=== PATIENT | female | born 1985 | race Caucasian/White ===

== ENCOUNTER 2017-09-20 11:56 | Outpatient (CLI) | payer BC ==
[~2017-09-20 11:56] MED LIST: PREN-132 PO; PROP10TA10 PO; [UNRECOGNIZED DRUG - CODE] PO
[2017-09-20] MEDS ORDERED: LORA0.5T PO (13:16)
[2017-09-20] MEDS ORDERED: PRO100T PO (13:16)
[2017-09-20] MEDS ORDERED: TRINTELLIX PO (13:16)
[2017-09-20] MEDS ORDERED: ONDA8TAB6 PO (13:16)
[2017-09-20 13:25] LABS: BASOPHILS % (AUTO) 0.3 % (0-1); EOSINOPHILS # (AUTO) 0.1 X10'3 (0-0.9); EOSINOPHILS % (AUTO) 1.1 % (0-6); LYMPHOCYTES # (AUTO) 1.7 X10'3 (1.1-4.8); LYMPHOCYTES % (AUTO) 27.3 % (21-51); MEAN CORPUSCULAR HEMOGLOBIN 30.9 PG (27.0-31.0); MEAN CORPUSCULAR HGB CONC 34.6 % (33.0-36.5); MEAN CORPUSCULAR VOLUME 89.3 FL (78-98); MEAN PLATELET VOLUME 8.1 FL (7.4-10.4); MONOCYTES # (AUTO) 0.5 X10'3 (0-0.9); MONOCYTES % (AUTO) 7.6 % (2-12); NEUTROPHILS % (AUTO) 63.7 % (42-75); PRE OP HEMOGLOBIN 13.8 g/dL (12.0-16.0); PRE OP PLATELET COUNT 256 X10'3 (140-440); RED BLOOD COUNT 4.48 X10'6 (4.20-5.60); RED CELL DISTRIBUTION WIDTH 13.3 % (11.5-14.5)
[2017-09-20 13:42] LABS: ALBUMIN 4.2 G/DL (3.4-5.0); ALBUMIN/GLOBULIN RATIO 1.3 (1.1-1.5); ALKALINE PHOSPHATASE 59 IU/L (46-116); BLOOD UREA NITROGEN 10 MG/DL (7-18); BUN/CREATININE RATIO 15.4 (6.6-38.0); CALCIUM 8.6 MG/DL (8.5-10.1); CHLORIDE 103 MMOL/L (99-107); CREATININE 0.65 MG/DL (0.40-0.90); PRE OP ALT 15 U/L (30-65); PRE OP ANION GAP 8 (8-16); PRE OP AST 14 U/L (10-37); PRE OP BILIRUB, TOTAL 0.3 MG/DL (0.0-1.0); PRE OP GLUCOSE 96 MG/DL (70-104); PRE OP POTASSIUM 3.9 MMOL/L (3.4-5.1); PRE OP SODIUM 140 MMOL/L (135-145); TOTAL CARBON DIOXIDE 29.2 MMOL/L (24-32); TOTAL PROTEIN 7.5 G/DL (6.4-8.2); eGFR > 90 ML/MIN
[2017-09-20 14:26] LABS: HCG SERUM QL NEGATIVE
[2017-09-22] MEDS ORDERED: VORT10TA PO (09:21)
[2017-09-22] MEDS ORDERED: ONDA8TAB13 PO (09:21)
[2017-09-23] MEDS ORDERED: ringers solution, lacted 1,000 ML IV SCH (05:00)
[2017-09-23] MEDS ORDERED: famotidine 20mg tablet PO ONE (05:30)
[2017-09-23] MEDS ORDERED: scopolamine 1.5mg patch.TD72 TD ONE (05:30)
[2017-09-23] MEDS ORDERED: Cefazolin 2GM/50ML dext iso,osmotic IVPB IV ONE (05:30)
== END 2017-09-20 23:59 | disposition home or self-care (01) ==
LOC: PRE-OP 11:56 → EDSTATUS 09-23 07:30
PROVIDERS: ATTEND Obstetrics & Gynecology
DX: Z01.812 Encounter for preprocedural laboratory examination (principal); R10.2 Pelvic and perineal pain; N93.9 Abnormal uterine and vaginal bleeding, unspecified
CPT/HCPCS: 36415; 80053; 84703; 85025; J7120